=== PATIENT | male | born 1960 | race Caucasian/White ===

== ENCOUNTER 2017-08-10 08:28 | Emergency (ER) | payer OTHER ==
[~2017-08-10] VITALS: Ht 180.3 cm; Wt 120.0 kg
[2017-08-10 08:32] VITALS: BP 180/87; PULSE 86; RESP 20; TEMP 98; O2SAT 97
[2017-08-10] MEDS ORDERED: ACYC200C66 PO (09:14)
--- NOTE | 2017-08-10 09:21 | PD ---
HPI Chief Complaint: Complaint Time Seen by Provider: 08:45 Travel History International Travel<30 days: No Contact w/Intl Traveler<30days: No Traveled to known affect area: No History of Present Illness HPI Patient comes emergency department complaining of possible spider bite to his glans penis ongoing for a week. Patient reports he sleeps in the nude and this is how he believes a spider may have bit his penis. Patient has a painful throbbing sensation in his glans penis and radiates proximally. Patient reports putting Neosporin on this with no improvement of symptoms. Feels like he has gotten progressively worse. Patient reports he is sexually actively denies knowing if his partner having any symptoms. Denies any dysuria, penile discharge, or fevers. PFSH Past Medical History Medical History: Denies Significant Hx Social History Alcohol Use: Yes (4-5 beer/day) Tobacco Use: Yes (ppd) Substance Use: No Allergies-Medications (Allergen,Severity, Reaction): Coded Allergies: No Known Allergies (Unverified , 08/10/17) Reported Meds & Prescriptions Reported Meds & Active Scripts Active Acyclovir 200 Mg Cap 200 Mg PO 5 TIMES A DAY 7 Days Review of Systems Except as stated in HPI: all other systems reviewed are Neg Physical Exam Narrative GENERAL: Well-developed, overly nourished, in no acute distress, and non-ill appearing. SKIN: Vesicular herpetic appearing lesion noted on the glans penis. There is no signs of cellulitis, abscess, or syphilis. HEAD: Atraumatic. Normocephalic. EYES: Pupils equal and round. EOMI. No scleral icterus. No injection or drainage. ENT: No nasal bleeding or discharge. Mucous membranes pink and moist. NECK: Trachea midline. Supple. No nuclear rigidity. RESPIRATORY: No accessory muscle use. No respiratory distress. MUSCULOSKELETAL: No obvious deformities. No clubbing. No cyanosis. No edema. Full range of motion. NEUROLOGICAL: Awake and alert. No obvious cranial nerve deficits. Motor grossly within normal limits. Normal speech. PSYCHIATRIC: Appropriate mood and affect; insight and judgment normal. Data Data Last Documented VS Vital Signs Date Time Temp Pulse Resp B/P (MAP) Pulse Ox O2 Delivery O2 Flow Rate FiO2 08/10/17 08:32 98.0 86 20 180/87 (118) 97 Orders Orders Herpes Simplex Virus Culture (08/10/17 09:16) Ed Discharge Order (08/10/17 09:21) [facility] Medical Decision Making Medical Screen Exam Complete: Yes Emergency Medical Condition: Yes Differential Diagnosis Syphilis, cellulitis, abscess, herpes Narrative Course The patient looks great and was non-ill appearing. There was no evidence to suggest scabies, cellulitis, folliculitis or abscess, Staph. Scalded Skin Syndrome, Toxic Shock, Toxic Epidermal necrolysis, Kawasakis, Measles, Rubella, cutaneous T cell lymphoma, Erythema Multiforme (minor or major). Plan of care was discussed with the patient and the patient is to follow up with their physician. The patient agreed with plan. Patient in no obvious distress upon re-evaluation. Patient was asked if they wanted to speak to my attending, which the patient did not wish to do at this time. Any questions/concerns in reference to patient diagnosis/condition discussed and clarified prior to patient's discharge. Reinforced sheer importance of close follow up with patient's primary physician or primary care clinic. Instructed patient to return to ED immediately, if symptoms return/ worsen. Patient showed understanding of above instructions. Further instructions and recommendations were detailed in discharge paperwork. Patient ambulated without difficulty out of ED at discharge. Diagnosis Primary Impression: Herpetic lesion Referrals: [facility] Dept. Patient Instructions: General Instructions, Genital Herpes Simplex (ED) Additional Instructions: Follow-up with your primary care physician in 5-7 days for reevaluation and medication refills as needed. Take all medication as prescribed. Avoid sexual activity during outbreak to prevent spreading infection. Return to the emergency department if symptoms get worse. Scripts Acyclovir (Acyclovir) 200 Mg Cap 200 MG PO 5 TIMES A DAY for Mgmt Viral Infection for 7 Days, CAP 0 Refills Prov: Arturo Galo MD 08/10/17 Disposition: 01 DISCHARGE HOME Condition: Stable Dmitri Kat Aug 10, 2017 09:21
== END 2017-08-10 09:25 | disposition home or self-care (01) ==
LOC: NEPD 08:28
DX: A60.01 Herpesviral infection of penis (principal); F17.200 Nicotine dependence, unspecified, uncomplicated
CPT/HCPCS: 87255; 99283